=== PATIENT | female | born 1990 | race Caucasian/White ===

== ENCOUNTER 2016-10-13 16:13 | Emergency (ER) | payer BC, OTHER ==
[~2016-10-13] VITALS: Ht 152.4 cm; Wt 90.0 kg
[~2016-10-13 16:13] MED LIST: ACET500C5 PO; ALBU8.5H3 INH; HYDR-762 PO; IBUP400T22 PO; ONDA4TAB35 PO; PARO20TA58 PO
[2016-10-13 16:21] VITALS: Ht 152.4 cm; Wt 90.0 kg
[2016-10-13] MEDS ORDERED: ACETAMINOPHEN 500 MG TAB PO STA (16:44)
[2016-10-13] MEDS ORDERED: ONDANSETRON 4 MG INJ IV STA ×2 (16:44→17:28)
[2016-10-13] MEDS ORDERED: SOD CHLORIDE 0.9% 1,000 ML IV STA (16:44)
--- NOTE | 2016-10-13 16:53 | ERD ---
ER Documentation Chief Complaint Date/Time DATE: 10/13/16 TIME: 16:49 Chief Complaint Headache after receiving morphine at [facility] today. HPI 26 yo female comes emergency department with a frontal headache, shakiness after receiving morphine at [facility] emergency department this afternoon. Patient states that she has had epigastric pain and has been told that she likely has an ulcer and has an endoscopy scheduled for next week. She has had epigastric abdominal pain, burning, nonradiating. She had blood work done at [facility] this afternoon and reports that she was told everything was normal, as well as an ultrasound the gallbladder she also was told that was normal. She was also given a GI cocktail [place] a few days ago with improvement of pain and has been taking omeprazole since being discharged. She has not had any fevers, chills, vomiting, diarrhea. After receiving morphine she states that she felt shaky, she tried taking half a [place] that was prescribed to her from [facility] and does not have any improvement. Patient denies abdominal pain at this time. ROS All systems reviewed and are negative except as per history of present illness. Medications Home Meds Active Scripts Cephalexin* (Keflex*) 500 Mg Capsule, 500 MG PO TID for 7 Days, CAP Prov:AMARA GONZALEZ PA-C 10/13/16 Acetaminophen* (Tylophen*) 500 Mg Capsule, 1 CAP PO Q6H Y for PAIN AND OR ELEVATED TEMP, #20 CAP Prov:AMARA GONZALEZ PA-C 10/13/16 Ranitidine Hcl* (Zantac*) 150 Mg Tablet, 150 MG PO BID Y for EPIGASTRIC PAIN, # 30 TAB Prov:AMARA GONZALEZ PA-C 10/13/16 Ondansetron Hcl* (Zofran* ODT) 4 mg -ODT Tab.disper, 4 MG PO DAILY Y for NAUSEA AND/OR VOMITING, #10 TAB 0 Refills Prov:ROBERT FLANAGAN PA-C 09/27/15 Ibuprofen* (Motrin*) 400 Mg Tab, 400 MG PO Q6, #30 TAB 0 Refills Prov:ROBERT FLANAGAN PA-C 09/27/15 Acetaminophen* (Tylophen*) 500 Mg Capsule, 1 CAP PO Q6H Y for PAIN AND OR ELEVATED TEMP, #30 CAP 0 Refills Prov:ROBERT FLANAGAN PA-C 09/27/15 Hydrocodone Bit-Acetaminophen* ([place]*) 10-325 Mg Tablet, 1 TAB PO Q6 Y for PAIN , #10 TAB Prov:MEGAN ZIMMERMAN NP 07/17/15 Albuterol Sulfate* (Proair HFA*) 8.5 Gm Hfa.aer.ad, 2 PUFF INH Q4H Y for WHEEZING AND SOB, #1 INHALER Prov:SHANNON PAUL MD 05/17/15 Reported Medications Paroxetine Hcl* (Paxil*) 20 Mg Tablet, 20 MG PO DAILY, TAB 07/12/14 Allergies Allergies: Coded Allergies: No Known Drug Allergies (Verified Allergy, Unknown, 07/17/15) PMhx/Soc History of Surgery: Yes (Julien Eyes Laser Surg) Anesthesia Reaction: No Hx Neurological Disorder: No Hx Respiratory Disorders: Yes (Bronchitis) Hx Cardiac Disorders: No Hx Psychiatric Problems: Yes (Anxiety D/O) Hx Miscellaneous Medical Probl: No Hx Alcohol Use: No Hx Substance Use: No Hx Tobacco Use: No Physical Exam Vitals Vital Signs Date Time Temp Pulse Resp B/P Pulse Ox O2 Delivery O2 Flow Rate FiO2 10/13/16 16:21 98.9 76 18 130/60 94 Physical Exam General: Well-developed, well-nourished. The patient appears in no acute distress. HEENT: Head is normocephalic, atraumatic. No scleral icterus. Neck: Supple. Nontender. Lungs: Clear to auscultation. Normal air movement. Heart: Regular rate and rhythm. S1 and S2 are normal. No murmurs, gallops, or rubs. Abdomen: Soft, nontender, nondistended. Bowel sounds are normoactive. Extremities: No clubbing or cyanosis. Normal pulses. Moving extremities x 4. No weakness. Neurologic: Alert and oriented 3. No focal deficits. Cranial nerves II 12 grossly intact. Speech and gait normal. Skin: Normal turgor. No rash or lesions. Results 24 hrs Laboratory Tests Test 10/13/16 17:00 Urine Color LT. YELLOW Urine Clarity CLOUDY Urine pH 5.5 Urine Specific [place] 1.025 Urine Ketones NEGATIVE Urine Nitrite NEGATIVE Urine Bilirubin NEGATIVE Urine Urobilinogen 0.2 E.U./dL Urine Leukocyte Esterase TRACE Urine Microscopic RBC 0-2/HPF Urine Microscopic WBC 5-10/HPF Urine Squamous Epithelial Cells MANY Urine Bacteria MODERATE Urine Hemoglobin 1+ Urine Glucose NEGATIVE% Urine Total Protein NEGATIVE Current Medications Medications (Trade) Dose Ordered Sig/Kristyn Route PRN Reason Start Time Stop Time Status Last Admin Dose Admin Sodium Chloride (NS) 1,000 ml @ 1,000 mls/hr Q1H STAT IV 10/13/16 16:44 10/13/16 17:43 DC 10/13/16 17:06 Ondansetron HCl (Zofran Inj) 4 mg ONCE STAT IV 10/13/16 16:44 10/13/16 16:46 DC 10/13/16 17:06 Acetaminophen (Tylenol Tab) 1,000 mg ONCE STAT PO 10/13/16 16:44 10/13/16 16:46 DC 10/13/16 17:06 Ondansetron HCl (Zofran Inj) 4 mg ONCE STAT IV 10/13/16 17:28 10/13/16 17:29 DC 10/13/16 17:37 Procedures/MDM ED course: IV line established, she was given a fluid bolus of normal saline 1 L, Zofran 4 mg IV. She was given Tylenol 1 g by mouth. She was reassessed, she stated that she is continued to have nausea however with feeling much better in terms of her headache. She was given an additional Zofran 4 mg IV and reports to be feeling much better. We received faxed results from [facility] from today's visit, she had a white count of 10.6, lipase was normal, AST was mildly elevated at 42, ALT was normal at 14. Electrolytes are unremarkable. Urine at that time did not show any leukocyte esterase. A gallbladder ultrasound does not show evidence of acute hepatobiliary process, no gallstones noted. MDM: 26-year-old female comes in with a headache, after receiving morphine to treat her gastritis. She does not have any abdominal pain, signs of acute cholecystitis, choledocholithiasis, jaundice, meningitis or encephalitis. This is likely rebound headache from the morphine. I did not give her Toradol ibuprofen given her recent emergency room visits for epigastric abdominal pain as she may have an ulcer. Given that patient had a workup done in the emergency room at [facility] earlier the same day, I did not feel that the patient needed reevaluation of lab work and she does not have any worsening abdominal pain, in fact she states that she does not have any abdominal pain after she was given morphine in the emergency room previously. I believe her headache was initially caused by morphine, she states that she is feeling much better at this time will be discharged home. She is to follow-up with her doctor next week for her endoscopy. Gastritis versus GERD versus ulcer are most likely diagnosis, possibly H pylori. Departure Diagnosis: Primary Impression: Abdominal pain Additional Impression: Headache Condition: Good AMARA GONZALEZ PA-C Oct 13, 2016 16:53
[2016-10-13 17:16] LABS: ADD UMIC YES; UR BILIRUBIN (Dip) NEGATIVE (NEGATIVE); UR BLOOD (Dip) 1+ (NEGATIVE); UR CLARITY CLOUDY (CLEAR); UR COLOR LT. YELLOW (YELLOW); UR GLUCOSE (Dip) NEGATIVE (NEGATIVE); UR KETONES (Dip) NEGATIVE (NEGATIVE); UR LEUKOCYTE ESTERASE (Dip) TRACE (NEGATIVE); UR NITRITE (Dip) NEGATIVE (NEGATIVE); UR TOTAL PROTEIN (Dip) NEGATIVE (NEGATIVE); UR UROBILINOGEN (Dip) 0.2 E.U./dL (0.1-1.0)
[2016-10-13 17:25] LABS: UR BACTERIA MODERATE; UR SQUAMOUS EPITHELIAL CELL MANY; URINE RBCS 0-2 /HPF (0)
[2016-10-13] MEDS ORDERED: RANI150T9 PO (19:34)
[2016-10-13] MEDS ORDERED: ACET500C5 PO (19:34)
[2016-10-13] MEDS ORDERED: CEPH-443 PO (19:34)
[2016-10-13] MEDS ORDERED: ONDA4TAB14 PO (20:50)
[2016-10-13 20:54] VITALS: BP 114/73; PULSE 74; RESP 18; TEMP 98.6
== END 2016-10-13 20:54 | disposition home or self-care (01) ==
LOC: FTE 16:13
DX: R10.13 Epigastric pain (principal)
CPT/HCPCS: 81001; J2405; J7030; 96374; 96376

== ENCOUNTER 2017-04-16 10:30 | Emergency (ER) | payer BC ==
[~2017-04-16] VITALS: Ht 152.4 cm; Wt 86.5 kg
[~2017-04-16 10:30] MED LIST changes: +CEPH-443 PO; +ONDA4TAB14 PO; +RANI150T9 PO
[2017-04-16 10:38] VITALS: Ht 152.4 cm; Wt 86.5 kg
[2017-04-16] MEDS ORDERED: CETI10CA PO (11:51)
[2017-04-16] MEDS ORDERED: FLUT9.9S NASAL (11:52)
[2017-04-16] MEDS ORDERED: GUAI120011 PO (11:52)
--- NOTE | 2017-04-16 12:03 | ERD ---
ER Documentation Chief Complaint Chief Complaint cough x 1 week HPI This is a 27-year-old female who presents the emergency department today for lots of phlegm. States that she lost her voice 3 days ago. States she has been clearing her throat a lot. States that she has a estate manager doctor and she texted him and he gave her a prescription for amoxicillin because he told her she had "bronchitis". Denies any cough, fevers or chills. ROS All systems reviewed and are negative except as per history of present illness. Medications Home Meds Active Scripts Guaifenesin (Mucinex) 1,200 Mg Tab.er.12h, 1200 MG PO BID for 7 Days, TAB Prov:ELPIDIO TABARES PA-C 04/16/17 Fluticasone Propionate (Flonase Allergy Relief) 9.9 Ml [place].susp, 2 SPRAY NASAL DAILY, #1 BOTTLE TO EACH NOSTRIL Prov:ELPIDIO TABARES PA-C 04/16/17 Cetirizine Hcl* (Zyrtec*) 10 Mg Capsule, 10 MG PO DAILY, #14 TAB.CHEW Prov:ELPIDIO TABARES PA-C 04/16/17 Ondansetron (Ondansetron Odt) 4 Mg Tab.rapdis, 4 MG PO Q6H Y for NAUSEA AND/OR VOMITING, #10 TAB Prov:AMARA GONZALEZ PA-C 10/13/16 Cephalexin* (Keflex*) 500 Mg Capsule, 500 MG PO TID for 7 Days, CAP Prov:AMARA GONZALEZ PA-C 10/13/16 Acetaminophen* (Tylophen*) 500 Mg Capsule, 1 CAP PO Q6H Y for PAIN AND OR ELEVATED TEMP, #20 CAP Prov:AMARA GONZALEZ PA-C 10/13/16 Ranitidine Hcl* (Zantac*) 150 Mg Tablet, 150 MG PO BID Y for EPIGASTRIC PAIN, # 30 TAB Prov:AMARA GONZALEZ PA-C 10/13/16 Ondansetron Hcl* (Zofran* ODT) 4 mg -ODT Tab.disper, 4 MG PO DAILY Y for NAUSEA AND/OR VOMITING, #10 TAB 0 Refills Prov:ROBERT FLANAGAN PA-C 09/27/15 Ibuprofen* (Motrin*) 400 Mg Tab, 400 MG PO Q6, #30 TAB 0 Refills Prov:ROBERT FLANAGAN PA-C 09/27/15 Acetaminophen* (Tylophen*) 500 Mg Capsule, 1 CAP PO Q6H Y for PAIN AND OR ELEVATED TEMP, #30 CAP 0 Refills Prov:ROBERT FLANAGAN PA-C 09/27/15 Hydrocodone Bit-Acetaminophen* ([place]*) 10-325 Mg Tablet, 1 TAB PO Q6 Y for PAIN , #10 TAB Prov:MEGAN ZIMMERMAN NP 07/17/15 Albuterol Sulfate* (Proair HFA*) 8.5 Gm Hfa.aer.ad, 2 PUFF INH Q4H Y for WHEEZING AND SOB, #1 INHALER Prov:SHANNON PAUL MD 05/17/15 Reported Medications Paroxetine Hcl* (Paxil*) 20 Mg Tablet, 20 MG PO DAILY, TAB 07/12/14 Allergies Allergies: Coded Allergies: No Known Drug Allergies (Verified Allergy, Unknown, 07/17/15) PMhx/Soc History of Surgery: Yes (Julien Eyes Laser Surg) Anesthesia Reaction: No Hx Neurological Disorder: No Hx Respiratory Disorders: Yes (Bronchitis) Hx Cardiac Disorders: No Hx Psychiatric Problems: Yes (Anxiety D/O) Hx Miscellaneous Medical Probl: No Hx Alcohol Use: No Hx Substance Use: No Hx Tobacco Use: No Smoking Status: Never smoker Physical Exam Vitals Vital Signs Date Time Temp Pulse Resp B/P Pulse Ox O2 Delivery O2 Flow Rate FiO2 04/16/17 10:38 97.9 86 18 131/63 98 Physical Exam Const: talkative, NAD Head: Atraumatic Eyes: Normal Conjunctiva ENT: TMs normal. Nose no drainage. Throat mild erythema, no exudate no vesicles. Drainage posterior pharynx Neck: Full range of motion..~ No meningismus. Resp: Clear to auscultation bilaterally no absent breath sounds. No wheezing. Cardio: Regular rate and rhythm, no murmurs Abd: Soft, non tender, non distended. Normal bowel sounds Skin: No petechiae or rashes Neur: Awake and alert Psych: Normal Mood and Affect Procedures/MDM This is a 27-year-old female who presents emergency department today complaining of URI symptoms. Patient reported having phlegm and she thought that there was some blood in it however she endorses clearing her throat multiple times because of the phlegm. She has drainage in her posterior pharynx but no evidence of tonsillar exudate have low suspicion for strep pharyngitis, retropharyngeal abscess or peritonsillar abscess. Patient is afebrile and otherwise well-appearing. She denies any cough. Patient was given a prescription for amoxicillin to treat "bronchitis" by her primary care doctor. Do not feel the patient requires imaging at this time as again she has denied cough. Low suspicion for pneumonia, PE, abscess, pleural effusion. Patient is losing her voice and she does have evidence of laryngitis however I feel that this is most likely caused by the drainage or posterior pharynx. Patient was given a prescription for Zyrtec, Flonase, Mucinex for home. At this time the patient is stable for discharge and outpatient management. Patient should follow up with their PCP in the next 1-2 days. They may return to the emergency department sooner for any persistent or worsening of symptoms. Patient understood and agreed with the plan. Departure Diagnosis: Primary Impression: Laryngitis Additional Impression: URI (upper respiratory infection) URI type: unspecified URI Qualified Code: J06.9 - Upper respiratory tract infection, unspecified type Condition: Fair Patient Instructions: Preventing Common Respiratory Infections, Laryngitis Additional Instructions: Call your primary care doctor TOMORROW for an appointment during the next 1-2 days.See the doctor sooner or return here if your condition worsens before your appointment time. Take medications as prescribed. Drink plenty of clear fluids to help improve symptom Give yourself vocal rest ELPIDIO TABARES PA-C Apr 16, 2017 12:03
== END 2017-04-16 12:20 | disposition home or self-care (01) ==
LOC: FTE 10:30
DX: J04.0 Acute laryngitis (principal); J06.9 Acute upper respiratory infection, unspecified
CPT/HCPCS: 99283

== ENCOUNTER 2017-10-09 09:09 | Emergency (ER) | END 2017-10-09 10:39 | disposition home or self-care (01) ==

== ENCOUNTER 2018-02-05 01:58 | Emergency (ER) | END 2018-02-05 03:56 | disposition home or self-care (01) ==

== ENCOUNTER 2018-03-10 01:33 | Emergency (ER) | END 2018-03-10 02:25 | disposition left against medical advice (07) ==

== ENCOUNTER 2018-04-16 06:27 | Emergency (ER) | END 2018-04-16 08:05 | disposition home or self-care (01) ==

== ENCOUNTER 2018-06-17 02:42 | Emergency (ER) | payer OTHER ==
[~2018-06-17] VITALS: Ht 152.4 cm; Wt 74.8 kg
[~2018-06-17 02:42] MED LIST changes: -ALBU8.5H3 INH; +ALBU8.5H8 INH; +CETI10CA PO; +ELEC100080 PO; +FLUT9.9S NASAL; +GUAI120011 PO; +IBUP-1542 PO; +IBUP-1561 PO; -IBUP400T22 PO; +ONDA8TAB14 PO; +PARO-2 PO; -PARO20TA58 PO; +RANI150T35 PO; -RANI150T9 PO; +TRAM50TA2 PO
[2018-06-17 02:45] VITALS: Ht 152.4 cm; Wt 74.8 kg
[2018-06-17] MEDS ORDERED: ALPR1TAB2 PO (03:48)
[2018-06-17] MEDS ORDERED: IBUPROFEN 600 MG TAB PO ONE (04:00)
[2018-06-17] MEDS ORDERED: ALPRAZOLAM 0.25 MG TAB PO ONE (04:00)
--- NOTE | 2018-06-17 04:01 | ERD ---
ER Documentation Chief Complaint Chief Complaint chest tightness, insomnia, pt just started clonazepam 1mg HPI 28 year old female with a history of depression and anxiety presenting with co mplaints of chest tightness and anxiety. She has recently been much more anxious and depressed due to personal problems. Her doctor started her on prozac, which she used to take, in addition to clonazepam. She thinks her symptoms are secondary to the latter. Every time she takes clonazepam, she gets these symptoms, in addition to insomnia. NO shortness of breath, nausea, vomiting. No alleviating factors. She was seen 3 days ago at [facility] and given ativan with improvement of her symptoms. ROS All systems reviewed and are negative except as per history of present illness. Medications Home Meds Active Scripts Alprazolam* (Xanax*) 1 Mg Tab, 1 MG PO Q8H PRN for ANXIETY, #4 TAB Prov:TATUM ALARCON MD 06/17/18 Ibuprofen* (Motrin*) 600 Mg Tab, 600 MG PO Q6H PRN for PAIN AND OR ELEVATED TEMP, #30 TAB Prov:ESTELLE WELLS PA-C 02/05/18 Cetirizine Hcl* (Zyrtec*) 10 Mg Capsule, 10 MG PO DAILY, #20 TAB.CHEW Prov:ESTELLE WELLS PA-C 10/09/17 Electrolyte,Oral (Pedialyte) 1,000 Ml Solution, 1000 ML PO Q6, #2000 ML Prov:ESTELLE WELLS PA-C 10/09/17 Ondansetron (Ondansetron Odt) 8 Mg Tab.rapdis, 8 MG PO Q6H PRN for NAUSEA AND/OR VOMITING, #30 TAB Prov:ESTELLE WELLS PA-C 10/09/17 Tramadol HCl (Tramadol HCl) 50 Mg Tablet, 50 MG PO Q6 PRN for PAIN, #20 TAB Prov:ESTELLE WELLS PA-C 10/09/17 Guaifenesin (Mucinex) 1,200 Mg Tab.er.12h, 1200 MG PO BID for 7 Days, TAB Prov:ELPIDIO TABARES PA-C 04/16/17 Fluticasone Propionate (Flonase Allergy Relief) 9.9 Ml [place].susp, 2 SPRAY NASAL DAILY, #1 BOTTLE TO EACH NOSTRIL Prov:ELPIDIO TABARES PA-C 04/16/17 Cetirizine Hcl* (Zyrtec*) 10 Mg Capsule, 10 MG PO DAILY, #14 TAB.CHEW Prov:ELPIDIO TABARES PA-C 04/16/17 Ondansetron (Ondansetron Odt) 4 Mg Tab.rapdis, 4 MG PO Q6H PRN for NAUSEA AND/OR VOMITING, #10 TAB Prov:AMARA GONZALEZ PA-C 10/13/16 Cephalexin* (Keflex*) 500 Mg Capsule, 500 MG PO TID for 7 Days, CAP Prov:AMARA GONZALEZ PA-C 10/13/16 Acetaminophen* (Tylophen*) 500 Mg Capsule, 1 CAP PO Q6H PRN for PAIN AND OR ELEVATED TEMP, #20 CAP Prov:AMARA GONZALEZ PA-C 10/13/16 Ranitidine Hcl* (Zantac*) 150 Mg Tablet, 150 MG PO BID PRN for EPIGASTRIC PAIN, #30 TAB Prov:AMARA GONZALEZ PA-C 10/13/16 Ondansetron Hcl* (Zofran* ODT) 4 mg -ODT Tab.disper, 4 MG PO DAILY PRN for NAUSEA AND/OR VOMITING, #10 TAB 0 Refills Prov:ROBERT FLANAGAN PA-C 09/27/15 Ibuprofen* (Motrin*) 400 Mg Tab, 400 MG PO Q6, #30 TAB 0 Refills Prov:ROBERT FLANAGAN PA-C 09/27/15 Acetaminophen* (Tylophen*) 500 Mg Capsule, 1 CAP PO Q6H PRN for PAIN AND OR ELEVATED TEMP, #30 CAP 0 Refills Prov:ROBERT FLANAGAN PA-C 09/27/15 Hydrocodone Bit-Acetaminophen* ([place]*) 10-325 Mg Tablet, 1 TAB PO Q6 PRN for PAIN, #10 TAB Prov:MEGAN ZIMMERMAN NP 07/17/15 Albuterol Sulfate* (Proair HFA*) 8.5 Gm Hfa.aer.ad, 2 PUFF INH Q4H PRN for W HEEZING AND SOB, #1 INHALER Prov:SHANNON PAUL MD 05/17/15 Reported Medications Paroxetine Hcl* (Paxil*) 20 Mg Tablet, 20 MG PO DAILY, TAB 07/12/14 Allergies Allergies: Coded Allergies: No Known Drug Allergies (Verified Allergy, Unknown, 07/17/15) PMhx/Soc History of Surgery: Yes (Julien Eyes Laser Surg) Anesthesia Reaction: No Hx Neurological Disorder: No Hx Respiratory Disorders: Yes (Bronchitis) Hx Cardiac Disorders: No Hx Psychiatric Problems: Yes (Anxiety, Depression) Hx Miscellaneous Medical Probl: No Hx Alcohol Use: No Hx Substance Use: No Hx Tobacco Use: No Smoking Status: Never smoker FmHx Family History: No coronary disease Physical Exam Vitals Vital Signs Date Temp Pulse Resp B/P (MAP) Pulse Ox O2 O2 Flow FiO2 Time Delivery Rate 06/17/18 98.0 87 14 129/87 98 Room Air 04:06 (101) 06/17/18 73 15 139/92 98 Room Air 03:22 (108) 06/17/18 97.6 99 16 138/72 96 02:45 (94) Physical Exam Const: No acute distress Head: Atraumatic Eyes: Normal Conjunctiva ENT: Normal External Ears, Nose and Mouth. Neck: Full range of motion. No meningismus. Resp: Clear to auscultation bilaterally Cardio: Regular rate and rhythm, no murmurs Abd: Soft, non tender, non distended. Normal bowel sounds Skin: No petechiae or rashes Back: No midline or flank tenderness Ext: No cyanosis, or edema Neur: Awake and alert Psych: Normal Mood and Affect, no SI or HI Results 24 hrs Current Medications Medications Dose Sig/Kristyn Start Time Status Last (Trade) Ordered Route PRN Stop Time Admin Dose Reason Admin Alprazolam 0.5 mg ONCE ONCE 06/17/18 DC 06/17/18 (Xanax) PO 04:00 04:02 06/17/18 04:01 Ibuprofen 600 mg ONCE ONCE 06/17/18 DC 06/17/18 (Motrin) PO 04:00 04:01 06/17/18 04:01 Procedures/MDM EKG: NSR Normal axis and intervals No evidence of arrhythmia or ischemia MDM Patient likely suffering from anxiety attack versus adverse reaction to clonazepam. As she has taken Xanax before, I gave her a dose here and will give her a few tablets to take as needed for the next 2 days until she can see her PCP. I do not suspect PE, ACS, pneumonia, pneumothorax or other serious etiology of her symptoms. Departure Diagnosis: Primary Impression: Anxiety Condition: Stable Patient Instructions: Your Body's Response to Anxiety Referrals: DOCTOR,NOT ON STAFF (PCP) Additional Instructions: Stop taking clonazepam. Follow up with your primary care doctor on Monday. TATUM ALARCON MD Jun 17, 2018 04:01
[2018-06-17 04:06] VITALS: BP 129/87; PULSE 87; RESP 14
== END 2018-06-17 04:06 | disposition home or self-care (01) ==
LOC: E/R 02:42
DX: F41.9 Anxiety disorder, unspecified (principal)
CPT/HCPCS: 93005